=== PATIENT | female | born 1995 | race Caucasian/White ===

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

== ENCOUNTER 2018-08-21 18:05 | Emergency (ER) | payer OTHER ==
[2018-08-21] MEDS ORDERED: NS 1,000 ML IV ONE (19:02)
[2018-08-21 19:23] LABS: PLATELET COUNT 225 10^3/uL (150-400)
[2018-08-21] MEDS ORDERED: IOPAMIDOL (ISOVUE-300) 100 ML BTL ONE (20:12)
--- NOTE | 2018-08-21 21:13 | EDPHY ---
H & P Stated Complaint: Abd cramping x1wk, red blood stool x2 today. Time Seen by Provider: 08/21/18 18:43 HPI/ROS: Chief complaint: Abdominal pain, bloody stools History of present illness: This is a 22-year-old female who presents to the emergency department for evaluation of abdominal pain bloody stools. She describes the onset of abdominal pain over the last 5 days. She describes a diffuse pain, most pronounced in the lower abdomen. Over the last 2 days she started developed bright red blood in the stools. She denies precipitating factors. She denies alleviating or aggravating factors. She denies other associated signs or symptoms including no fevers, no nausea or vomiting, no melena, no urinary symptoms. No pain in the rectum or anus. She is not on her menstrual cycle. Review of systems: A 10 point review of systems was obtained and other than described above was negative. - Personal History LMP (Females 10-55): 1-7 Days Ago Current Tetanus/Diphtheria Vaccine: Yes - Medical/Surgical History Hx Asthma: No Hx Chronic Respiratory Disease: No Hx Diabetes: No Hx Cardiac Disease: No Hx Renal Disease: No Hx Cirrhosis: No Hx Alcoholism: No Hx HIV/AIDS: No Hx Splenectomy or Spleen Trauma: No Other PMH: kidney stones, - Social History Smoking Status: Never smoked - Physical Exam Exam: General Appearance: Alert, no distress. Eyes: Pupils equal and round no pallor or injection. ENT, Mouth: Mucous membranes moist. Respiratory: There are no retractions, lungs are clear to auscultation. Cardiovascular: Regular rate and rhythm. Gastrointestinal: Bowel sounds are normal. The abdomen is soft and nondistended. There is diffuse tenderness most pronounced in the lower quadrants bilaterally. No guarding or other peritoneal signs. Neurological: Alert and oriented x4. Skin: Warm and dry, no rashes. Musculoskeletal: Neck is supple non tender. Extremities are symmetrical, full range of motion. Psychiatric: Patient is oriented X 3, there is no agitation. Constitutional: Initial Vital Signs Temperature (C) 37.1 C 08/21/18 18:19 Heart Rate 97 08/21/18 18:19 Respiratory Rate 18 08/21/18 18:19 Blood Pressure 142/92 H 08/21/18 18:19 O2 Sat (%) 96 08/21/18 18:19 O2 Delivery Mode Room Air Allergies/Adverse Reactions: Sulfa (Sulfonamide Antibiotics) Allergy (Verified 08/21/18 18:18) Home Medications: Medication Instructions Recorded FLUoxetine [Prozac 20 MG (*)] 08/31/16 Sulfamethox/Tmp 800/160 mg 1 tab PO 08/31/16 [Bactrim Ds] Hydrocodone/APAP 5/325 [[place] 1 - 2 tab PO Q4H PRN #10 tab 09/01/16 5/325 (*)] Medical Decision Making - Diagnostics Imaging: Discussed imaging studies w/ yardage caller Radiologist ED Course/Re-evaluation: Patient seen under the supervision of my secondary supervising physician Dr. Reyna Barrera. Patient presents with abdominal pain and hematochezia. She is nontoxic. Vital signs are stable. Her workup has been largely unremarkable , possible large bowel thickening in the descending colon. I discussed with her the multiple possibilities of her symptoms. I do believe she is safe for discharge home. Home care is discussed. She is to follow up with Gastroenterology for further evaluation and care. Strict return precautions were given. The patient voiced understanding and agreement with plan. Differential Diagnosis: Included but not limited to rectal tear, hemorrhoids, colitis, diverticulitis, upper GI bleed on likely - Data Points Laboratory Results: Laboratory Results 08/21/18 19:05 08/21/18 19:05 Medications Given: Discontinued Medications Sodium Chloride (Ns) 1,000 mls @ 0 mls/hr IV EDNOW ONE; Wide Open PRN Reason: Protocol Stop: 08/21/18 19:03 Last Admin: 08/21/18 19:26 Dose: 1,000 mls Departure - Departure Disposition: Home, Routine, Self-Care Clinical Impression: Hematochezia Abdominal pain Qualifiers: Abdominal location: generalized Qualified Code(s): R10.84 - Generalized abdominal pain Condition: Good Instructions: Acute Abdominal Pain (ED) Additional Instructions: Follow-up with Gastroenterology for continued evaluation and care If symptoms worsen or new symptoms develop return to the emergency room for recheck Referrals: NONE *PRIMARY CARE P,. [Primary Care Provider] - As per Instructions Jordi Carver MD [Medical Doctor] - As per Instructions
[2018-08-21 21:28] VITALS: BP 133/88
== END 2018-08-21 21:34 | disposition home or self-care (01) ==
DX: R10.84 Generalized abdominal pain (principal); K92.1 Melena; E86.9 Volume depletion, unspecified
CPT/HCPCS: Q9967